=== PATIENT | female | born 1970 | race Hispanic/Latino ===

== ENCOUNTER 2019-02-25 21:19 | Emergency (ER) | payer SELFPAY ==
[2019-02-25 21:54] LABS: #Eosinphils 0.1 thou/uL (0.0-0.7); #Lymphocytes 2.2 thou/uL (1.20-3.40); #Monocytes 0.5 thou/uL (0.11-0.59); #Neutrophils 3.7 thou/uL (1.40-6.50); %Basophils 0.7 % (0.0-1.0); %Eosinophils 1.1 % (0.0-10.0); %Lymphocytes 34.1 % (21.0-51.0); %Monocytes 6.9 % (0.0-10.0); %Neutrophils 57.1 % (42.0-75.0); Hemoglobin 13.3 g/dL (12.0-16.0); Mean Corpuscular HGB CONC 34.2 g/dL (32.0-36.0); Mean Corpuscular Hemoglobin 30.3 pg (27.0-31.0); Mean Corpuscular Volume 88.7 fL (78.0-98.0); Mean Platelet Volume 7.8 fL (7.4-10.4); Platelet Count 158 thou/uL (130-400); RBC Distribution Width 11.9 % (11.5-14.5); White Blood Cell (WBC) Count 6.5 thou/uL (4.8-10.8)
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
[2019-02-25] MEDS ORDERED: Ondansetron PF 4 MG/2 ML Vial ONE (22:11)
[2019-02-25] MEDS ORDERED: Morphine 4 MG/ML VIAL ONE (22:11)
[2019-02-25 22:18] LABS: ALT (SGPT) 29 U/L (8-55); AST (SGOT) 28 U/L (5-34); Alkaline Phosphatase 134 U/L (40-150); Anion Gap 11 mmol/L (10-20); BUN (Urea Nitrogen) 10 mg/dL (7.0-18.7); Bilirubin, Total 0.2 mg/dL (0.2-1.2); Calc. Creatinine Clearance 0 mL/min (70-130); Calcium 8.6 mg/dL (7.8-10.44); Carbon Dioxide 22 mmol/L (22-29); Chloride 107 mmol/L (98-107); Estimated GFR-MDRD Greater than 90; Globulin 3.1 g/dL (2.4-3.5); Glucose 127 mg/dL (70-105); Potassium 4.7 mmol/L (3.5-5.1); Protein, Total 7.1 g/dL (6.0-8.3); Sodium 135 mmol/L (136-145)
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
[2019-02-25] MEDS ORDERED: Ketorolac Tromethamine 30 MG/ML VIAL ONE (23:21)
--- NOTE | 2019-03-01 17:09 | EKG ---
Test Reason : Blood Pressure : / mmHG Vent. Rate : 088 BPM Atrial Rate : 088 BPM P-R Int : 160 ms QRS Dur : 090 ms QT Int : 394 ms P-R-T Axes : 046 079 039 degrees QTc Int : 476 ms Normal sinus rhythm with sinus arrhythmia Normal ECG Confirmed by CARROLL CHAIDEZ DO ([id number]), proposal editor BRANDON HOWE ([id number]) on 03/01/2019 5:08:45 PM Referred By: Confirmed By:CARROLL CHAIDEZ DO
== END 2019-02-25 23:38 | disposition home or self-care (01) ==
LOC: ERS 21:19
DX: S80.02XA Contusion of left knee, initial encounter (principal); M54.2 Cervicalgia; M54.9 Dorsalgia, unspecified; R07.89 Other chest pain; M25.532 Pain in left wrist; M25.522 Pain in left elbow; V43.52XA Car driver injured in collision with other type car in traffic accident, initial encounter
CPT/HCPCS: 70450; 71260; 72125; 74177; 80053; 85025; 93005; 96361; 96374; 96375; J1885; J2270; J2405